=== PATIENT | male | born 1950 | race African-American/Black ===

== ENCOUNTER 2022-06-17 21:44 | Emergency (ER) | payer OTHER ==
[~2022-06-17] VITALS: Ht 175.3 cm; Wt 81.6 kg
[~2022-06-17 21:44] MED LIST: AZAT50TA18; DOXA4TAB3; FINA5TAB3; LOSA50TA39
[2022-06-18 00:01] VITALS: BP 136/76
== END 2022-06-18 01:19 | disposition home or self-care (01) ==
LOC: ER 21:47
DX: R04.0 Epistaxis (principal); Z88.1 Allergy status to other antibiotic agents; Z79.899 Other long term (current) drug therapy